=== PATIENT | male | born 1980 | race Two or more races ===

== ENCOUNTER 2017-12-14 21:57 | Emergency (ER) | payer SELFPAY ==
[~2017-12-14] VITALS: Ht 165.1 cm; Wt 79.5 kg
[2017-12-14 22:34] VITALS: BP 107/56
== END 2017-12-15 00:34 | disposition left against medical advice (07) ==
LOC: EMS 21:59
DX: R10.13 Epigastric pain (principal); F41.9 Anxiety disorder, unspecified; Z53.21 Procedure and treatment not carried out due to patient leaving prior to being seen by health care provider
CPT/HCPCS: 93005